=== PATIENT | female | born 1985 | race Caucasian/White ===

== ENCOUNTER 2018-08-02 10:31 | Day surgery (SDC) | payer OTHER ==
[2018-07-28 18:05] VITALS: BMI 27.4
[2018-08-02] MEDS ORDERED: CEFAZOLIN/Water 2 GM/20 ML SYRINGE ONE (12:15)
[2018-08-02] MEDS ORDERED: PROPOFOL 200 MG/20 ML VIAL ONE (13:40)
[2018-08-02] MEDS ORDERED: Lidocaine 1% PF 5 ML VIAL ONE (13:40)
[2018-08-02] MEDS ORDERED: Glycopyrrolate 0.2 MG/ML 5 ML SYRINGE ONE (13:40)
[2018-08-02] MEDS ORDERED: Dexamethasone 20 MG/5 ML VIAL ONE (13:40)
[2018-08-02] MEDS ORDERED: Ondansetron HCl/PF 4 MG/2 ML Vial ONE (13:40)
[2018-08-02] MEDS ORDERED: Ketorolac Tromethamine 30 MG/ML VIAL ONE (13:40)
[2018-08-02] MEDS ORDERED: Bupivacaine/Epinephrine 0.25% 30 ML VIAL ONE (13:45)
[2018-08-02] MEDS ORDERED: Fentanyl 100 MCG/2 ML VIAL ONE ×2 (13:54→15:14)
--- NOTE | 2018-08-02 13:58 | HP ---
CHIEF COMPLAINT: Umbilical hernia. HISTORY OF PRESENT ILLNESS: A 32-year-old female, who has about a year history of an umbilical herni a that is causing pain. She is here for repair. PAST MEDICAL HISTORY: Otherwise, healthy. PAST SURGICAL HISTORY: None. MEDICATIONS: Tylenol. ALLERGIES: No known drug allergies. FAMILY HISTORY: Mother has diabetes. SOCIAL HISTORY: She is . No tobacco or alcohol. PHYSICAL EXAMINATION: VITAL SIGNS: Weight 149, blood pressure 131/73, and pulse 76. GENERAL: Well-developed, well-nourished female in no apparent distress. HEENT: Unremarkable. LUNGS: Clear. HEART: Regular rate and rhythm. ABDOMEN: Soft, nondistended. She has 1.5 cm defect, reducible. EXTREMITIES: Unremarkable. ASSESSMENT: Umbilical hernia. PLAN: Umbilical hernia repair with possible mesh. CONSENT: I discussed the planned procedure as well as risk of bleeding, infection, recurrence. She understands and gives informed consent.
[2018-08-02] MEDS ORDERED: HYDROcodone/Acetaminophen 5/325 mg Tablet ONE (16:41)
--- NOTE | 2018-08-02 19:56 | OP ---
DATE OF PROCEDURE: 08/02/2018 PREOPERATIVE DIAGNOSIS: Umbilical hernia. SURGEON: Thanh Finnegan M.D. PROCEDURE PERFORMED: Umbilical hernia repair with mesh. INDICATIONS: This is a 32-year-old female who has a painful umbilical hernia. FINDINGS: 2 cm defect. PROCEDURE IN DETAIL: After informed consent was obtained, the patient was taken to the operating mayra m and given general endotracheal anesthesia and placed in the supine position. Abdomen was prepped a nd draped in the usual fashion. Local anesthesia infiltrated subcutaneously and deep. A subumbilica l incision was performed. The subcu divided sharply and a curvilinear incision made just below the u mbilicus. The subcu divided. The hernia sac was dissected from surrounding skin sharply down to the fascia circumferentially. The hernia sac removed. The contents were just some adipose that was red uced. Reduction was maintained utilizing a medium size 6.4 cm Proceed mesh bois forte that was inserted intraabdominally, pulled up, sutured to the abdominal wall with interrupted 0 Ethibond suture. Then, hemostasis achieved with electrocautery. Umbilical skin was reapproximated to the fascia with inter rupted 3-0 Vicryl suture to restore umbilical contour. Then, the skin closed with interrupted 4-0 Ra pide. Steri-Strips applied. A cotton ball placed and then a sterile bandage. The patient tolerated the procedure well and was transferred to recovery in good condition. Sponge and needle count verif ied correct x2.
== END 2018-08-02 17:25 | disposition home or self-care (01) ==
LOC: SDC 10:31
PROVIDERS: ATTEND Surgery
PROC: 0WUF0JZ Supplement Abdominal Wall with Synthetic Substitute, Open Approach (ICD-10-PCS; principal; 2018-08-02)
DX: K42.9 Umbilical hernia without obstruction or gangrene (principal)
CPT/HCPCS: 96374; J1100; J1885; J2001; J2405; J2704; J3010

== ENCOUNTER 2020-11-11 14:33 | Emergency (ER) | payer SELFPAY ==
--- NOTE | 2020-11-16 10:08 | EKG ---
Test Reason : EMERGENCY EXAM Blood Pressure : / mmHG Vent. Rate : 070 BPM Atrial Rate : 070 BPM P-R Int : 150 ms QRS Dur : 086 ms QT Int : 422 ms P-R-T Axes : 064 053 041 degrees QTc Int : 455 ms Normal sinus rhythm Normal ECG Confirmed by ANNA VALENCIA, ANNA MARIE Baig ([id number]), photograph editor ASHLEE BALDERAS ([id number]) on 11/16/2020 10:08:02 AM Referred By: Confirmed By:ANNA MARIE CASTILLO MD
== END 2020-11-11 15:43 | disposition home or self-care (01) ==
LOC: ERS 14:33
DX: I10 Essential (primary) hypertension (principal)
CPT/HCPCS: 93005

== ENCOUNTER 2021-10-06 15:28 | Outpatient (CLI) | payer OTHER | END 2021-10-06 15:29 | disposition home or self-care (01) | LOC: BICULT 15:28 | PROVIDERS: ATTEND Family Medicine | DX: O09.522 Supervision of elderly multigravida, second trimester (principal); Z3A.19 19 weeks gestation of pregnancy | CPT/HCPCS: 76805 ==

== ENCOUNTER 2023-11-13 21:51 | Emergency (ER) | payer OTHER, SELFPAY ==
[2023-11-13] MEDS ORDERED: Ondansetron PF 4 MG/2 ML Vial ONE (21:56)
[2023-11-13 22:17] LABS: Hematocrit 35.4 % (36.0-47.0); Hemoglobin 10.6 g/dL (12.0-16.0); Manual Diff?? YES; Mean Corpuscular HGB CONC 29.9 g/dL (32.0-36.0); Mean Corpuscular Hemoglobin 23.5 pg (27.0-31.0); Mean Corpuscular Volume 78.5 fl (78.0-98.0); Mean Platelet Volume 10.4 fL (7.4-10.4); Platelet Count 360 10x3/uL (130-400); RBC Distribution Width 16.9 % (11.5-14.5); Red Blood Cell (RBC) Count 4.51 mill/uL (4.20-5.40)
[2023-11-13 22:19] LABS: Delete Auto Diff?? YES
[2023-11-13 22:27] LABS: BHCG - Serum Negative (NEGATIVE); Pregs Control Background? CLEAR/WHITE (CLR/WHITE); Pregs Control Bar Appear? YES (CONTROL BAR)
[2023-11-13 22:31] LABS: PTT 27.3 sec (22.9-36.1); Prothrombin Time 13.6 sec (12.0-14.7)
[2023-11-13 22:38] LABS: Acetaminophen Less than 10 mcg/mL (10.0-30.0); Alcohol 296.9 mg/dL (Less than 10); Salicylate Less than 8.0 mg/dL (15.0-30.0)
[2023-11-13 22:39] LABS: ALT (SGPT) 14 U/L (8-55); AST (SGOT) 23 U/L (5-34); Alkaline Phosphatase 80 U/L (40-110); Anion Gap 15 mmol/L (10-20); BUN (Urea Nitrogen) 16 mg/dL (7.0-18.7); Bilirubin, Total 0.4 mg/dL (0.2-1.2); Calc. Creatinine Clearance 0 mL/min (70-130); Calcium 9.3 mg/dL (7.8-10.44); Carbon Dioxide 21 mmol/L (22-29); Chloride 104 mmol/L (98-107); Estimated GFR 105; Globulin 3.7 g/dL (2.4-3.5); Glucose 115 mg/dL (70-105); Protein, Total 8.7 g/dL (6.0-8.3); Sodium 137 mmol/L (136-145)
[2023-11-13 22:44] LABS: Anisocytosis SLIGHT = 6-15 cells HPF (0-5); CellaVision Operator ID LAB.JMM; Eosinophils 1 % (0-10); Lymphocytes 40 % (21-51); Monocytes 6 % (0-10); Neutrophil 53 % (42-75); Ovalocytes SLIGHT = 2-5 cells HPF (0-1); Platelet Adequacy Comment Platelets Normal; Polychromasia SLIGHT = 2-3 cells HPF (0-2); Total Cell Count 100
[2023-11-13 22:47] LABS: Bacteria/HPF None Seen HPF (None Seen); Bilirubin Negative (Negative); Blood, Urine Negative (Negative); CAUTI Indications for Culture Alt mental st,lethar; Clarity Clear (Clear); Glucose, Urine (Dipstick) Normal (Negative); Ketone, Urine Negative (Negative); Leukocyte Negative Leu/uL (Negative); Nitrite Negative (Negative); Protein, Urine (Dipstick) Negative (Neg-Trace); RBC/HPF None Seen HPF (0-3); Specific Gravity, Urine 1.005 (1.002-1.036); Squamous Epithelial 0-3 HPF (0-3); Urobilinogen Normal mg/dL (Less than 2); WBC/HPF 0-3 HPF (0-3)
[2023-11-13 22:50] LABS: Urine Culture Reflex No No
[2023-11-13 22:55] LABS: Amphetamine Not Detected (NotDetected); Barbiturates Screen Not Detected (NotDetected); Benzodiazepine Screen Not Detected (NotDetected); Cocaine Metabolite Screen Not Detected (NotDetected); Methadone Not Detected (NotDetected); Methamphetamine Not Detected (NotDetected); Opiate Screen Not Detected (NotDetected); Oxycodone Screen Not Detected (NotDetected); Phencyclidine (PCP) Not Detected (NotDetected); THC/Cannabinoid Screen Not Detected (NotDetected); Tricyclic Screen Not Detected (NotDetected)
[2023-11-13] MEDS ORDERED: Lidocaine 1% w/Epinephrine 1:100K 20 ML VIAL ONE (23:13)
[2023-11-13] MEDS ORDERED: Boostrix 0.5 ML (Tdap) VIAL (>/=7 yrs of age) ONE (23:13)
[2023-11-13] MEDS ORDERED: Multivitamins, Adult 10 ML, Thiamine HCl 100 MG, Folic Acid 1 MG in Dextrose 5 %-0.45 %... IV SCH (23:30)
[2023-11-14 01:57] LABS: Lactic Acid 2.4 mmol/L (0.5-2.2)
== END 2023-11-14 04:01 | disposition home or self-care (01) ==
LOC: ERS 21:51
DX: S01.81XA Laceration without foreign body of other part of head, initial encounter (principal); S01.112A Laceration without foreign body of left eyelid and periocular area, initial encounter; F10.129 Alcohol abuse with intoxication, unspecified; I10 Essential (primary) hypertension; W01.0XXA Fall on same level from slipping, tripping and stumbling without subsequent striking against object, initial encounter; Y92.009 Unspecified place in unspecified non-institutional (private) residence as the place of occurrence of the external cause; Z23 Encounter for immunization
CPT/HCPCS: 12011; 36415; 51701; 70450; 71045; 72125; 80053; 80306; 80307; 81001; 83605; 84703; 85025; 85610; 85730; 90715; 96365; 96366; 96375; J2405; J3411; J7042